=== PATIENT | female | born 1960 | race Caucasian/White ===

== ENCOUNTER 2017-02-26 20:16 | Emergency (ER) | payer MEDICAID ==
[~2017-02-26] VITALS: Ht 154.9 cm; Wt 58.0 kg
[~2017-02-26 20:16] MED LIST: ALBU18HF INHALATION; LEVA15HF6; LORA10TA3 PO; PRED20TA PO
[2017-02-26 21:21] VITALS: Ht 154.9 cm; Wt 58.0 kg
[2017-02-27] MEDS ORDERED: LIDOCAINE 1% (MDV) 20 ML INJ SC ONE (01:00)
[2017-02-27] MEDS ORDERED: SULF1TAB31 PO (01:51)
[2017-02-27] MEDS ORDERED: ACET500C5 PO (01:51)
[2017-02-27] MEDS ORDERED: ACETAMINOPHEN 500 MG TAB PO STA (01:52)
--- NOTE | 2017-02-27 02:06 | ERD ---
ER Documentation Chief Complaint Date/Time DATE: 02/27/17 TIME: 02:00 Chief Complaint left thumb pain with swelling, started 8 days ago HPI 56-year-old female is complaining of pain in her left thumb times 8 days. 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 Denies any injury to her left thumb. Denies fever or chills. Denies purulent drainage. ROS All systems reviewed and are negative except as per history of present illness. Medications Home Meds Active Scripts Sulfamethoxazole/Trimethoprim* (Bactrim Ds* Tablet) 1 Each Tablet, 1 TAB PO BID , #14 TAB Prov:BISHOP COX NP 02/27/17 Acetaminophen* (Tylophen*) 500 Mg Capsule, 1 CAP PO Q6H Y for PAIN AND OR ELEVATED TEMP, #20 CAP Prov:BISHOP COX NP 02/27/17 Loratadine* (Loratadine*) 10 Mg Tablet, 10 MG PO DAILY, #30 TAB 0 Refills Prov:TANA LEIVA PA-C 08/09/15 Prednisone* (Prednisone*) 20 Mg Tab, 40 MG PO DAILY, #10 TAB 0 Refills Prov:TANA LEIVA PA-C 08/09/15 Albuterol Sulfate* (Ventolin HFA*) 18 Gm Hfa.aer.ad, 2 PUFF INHALATION Q6H, #1 INHALER 0 Refills Prov:TANA LEIVA PA-C 08/09/15 Reported Medications Levalbuterol* (Xopenex* HFA) 15 Gm Inha 07/26/10 Allergies Allergies: Coded Allergies: Aspirin (Verified Allergy, Mild, 07/26/10) Penicillins (Verified Allergy, Mild, 07/26/10) PMhx/Soc History of Surgery: Yes (ARM SURGERY) Anesthesia Reaction: No Hx Neurological Disorder: No Hx Respiratory Disorders: Yes (ASTHMA) Hx Cardiac Disorders: No Hx Psychiatric Problems: No Hx Miscellaneous Medical Probl: No Hx Alcohol Use: No Hx Substance Use: No Hx Tobacco Use: No Smoking Status: Never smoker Physical Exam Vitals Vital Signs Date Time Temp Pulse Resp B/P Pulse Ox O2 Delivery O2 Flow Rate FiO2 02/26/17 21:21 97.8 74 18 139/74 100 Physical Exam General: Well-developed, well-nourished, conscious and coherent, in no distress Skin: Warm and dry without rash, good texture and turgor Head: Normocephalic without evidence of trauma Eyes: Sclera and conjunctivae normal; pupils equal, round, and reactive to light; extraocular movements are intact Chest: Normal AP diameter. Good expansion without retractions. Nontender. Lungs are clear to auscultate bilaterally with good tidal volume Heart: Regular rate and rhythm. No murmur, rub, or gallops heard Extremities: Left thumb swollen surrounding the nail on the ulnar aspect, slightly red and tender. Full range of motion. Good strength bilaterally. No clubbing, cyanosis, or edema. Peripheral pulses are intact. Sensation intact Neuro: Alert and oriented 4, GCS 15. Cranial nerves grossly intact. Motor and sensory exams nonfocal. Moves all extremities. Speech clear. Gait normal Results 24 hrs Current Medications Medications (Trade) Dose Ordered Sig/Sera Route PRN Reason Start Time Stop Time Status Last Admin Dose Admin Lidocaine (Xylocaine 1% (Mdv) 20 ml) 20 ml ONCE ONCE SC 02/27/17 01:00 02/27/17 01:01 DC Acetaminophen (Tylenol Tab) 500 mg ONCE STAT PO 02/27/17 01:52 02/27/17 01:54 DC Procedures/MDM Procedure note: Incision and Drainage Verbal consent obtained for incision and drainage of patient's paronychia. The area was prepped with Betadine. Digital block was 1% lidocaine was performed. After appropriate anesthesia, incision was made using #11 blade. Very small amount of purulent discharge was drained from the paronychia. The wound was then cleaned and dressed. Patient tolerated procedure well. Well-appearing 56-year-old female presented ED with paronychia of her left thumb. Patient advised to soak her affected digit in hot water 3-4 times a day , and wear gloves when she is at work. I doubt necrotizing fasciitis, deep tissue cellulitis. Patient appears well, stable for discharge and outpatient management. Medical decision making shared with patient and family. Education provided to patient and family. Patient and family expressed understanding of the plan. Medications on discharge: Tylenol, Bactrim DS. Follow-up: Return to eating 2 days for wound check. Disclaimer: Inadvertent spelling and grammatical errors are likely due to EHR/ dictation software use and do not reflect on the overall quality of patient care. Also, please note that the electronic time recorded on this note does not necessarily reflect the actual time of the patient encounter. Departure Diagnosis: Primary Impression: Paronychia Condition: Stable Patient Instructions: Paronychia [facility] Usted se jordan hecho un examen mdico de control que le indica que no est en alonso condicin que requiera tratamiento urgente en el Departamento de Emergencia. Un estudio ms profundo y el tratamiento de jones condicin pueden esperar sin ningn riesgo hasta que usted sea atendida/o en el consultorio de jones mdico o alonso cl bladimir. Es responsabilidad suya arreglar alonso awilda para el seguimiento del khadijah. MANEJO DE CONDICIONES NO URGENTES EN EL FUTURO 1) Si usted tiene un mdico de atencin primaria: Usted debera llamar a jones mdico de atencin primaria antes de venir al departamento de emergencia. Despus de las horas de consultorio, jones doctor o jones asociado/a est disponible por telfono. El mdico o enfermero de piper en el servicio telefnico puede asesorarle por nellie medio para atender el problema, o khadijah contrario se puede programar alonso awilda. 2) Si usted no tiene un mdico de atencin primaria: Llame al mdico o clnica de referencia que aparece abajo philly las horas de consultorio para hacer alonso awilda para que le vean. CLINICAS: [facility] [phone] [facility] [phone] [facility] [phone] [facility] [facility] [phone] [facility] [facility] [phone] [facility]. [phone] Additional Instructions: Regrese a estas instalaciones dentro de [facility] para un examen de seguimiento.Regrese antes si jones condicin se empeora. BISHOP COX NP Feb 27, 2017 02:06
== END 2017-02-27 02:15 | disposition home or self-care (01) ==
LOC: FTE 20:16
DX: L03.012 Cellulitis of left finger (principal); J45.909 Unspecified asthma, uncomplicated
CPT/HCPCS: 26010; Z7502; Z7610

== ENCOUNTER 2017-03-01 15:08 | Emergency (ER) | payer MEDICAID ==
[~2017-03-01] VITALS: Ht 160 cm; Wt 58.5 kg
[~2017-03-01 15:08] MED LIST changes: +ACET500C5 PO; +SULF1TAB31 PO
[2017-03-01 15:18] VITALS: Ht 160 cm; Wt 58.5 kg
--- NOTE | 2017-03-01 17:15 | ERD ---
ER Documentation Chief Complaint Date/Time DATE: 03/01/17 TIME: 17:13 Chief Complaint Patient here for a wound check HPI 48-year-old female comes in status post incision and drainage of a paronychia of the left thumb, coming in for wound check. Incision and drainage was done in which patient was discharged with Bactrim which she has been taking daily. She states pain is improving, there is not been any fevers, chills or drainage. ROS All systems reviewed and are negative except as per history of present illness. Medications Home Meds Active Scripts Sulfamethoxazole/Trimethoprim* (Bactrim Ds* Tablet) 1 Each Tablet, 1 TAB PO BID , #14 TAB Prov:BISHOP COX CARDIAC REHABILITATION PROGRAM DIRECTOR 02/27/17 Acetaminophen* (Tylophen*) 500 Mg Capsule, 1 CAP PO Q6H Y for PAIN AND OR ELEVATED TEMP, #20 CAP Prov:BISHOP COX CARDIAC REHABILITATION PROGRAM DIRECTOR 02/27/17 Loratadine* (Loratadine*) 10 Mg Tablet, 10 MG PO DAILY, #30 TAB 0 Refills Prov:TANA LEIVA PA-C 08/09/15 Prednisone* (Prednisone*) 20 Mg Tab, 40 MG PO DAILY, #10 TAB 0 Refills Prov:TANA LEIVA PA-C 08/09/15 Albuterol Sulfate* (Ventolin HFA*) 18 Gm Hfa.aer.ad, 2 PUFF INHALATION Q6H, #1 INHALER 0 Refills Prov:TANA LEIVA PA-C 08/09/15 Reported Medications Levalbuterol* (Xopenex* HFA) 15 Gm Inha 07/26/10 Allergies Allergies: Coded Allergies: Aspirin (Verified Allergy, Mild, 07/26/10) Penicillins (Verified Allergy, Mild, 07/26/10) PMhx/Soc History of Surgery: Yes (ARM SURGERY) Anesthesia Reaction: No Hx Neurological Disorder: No Hx Respiratory Disorders: Yes (ASTHMA) Hx Cardiac Disorders: No Hx Psychiatric Problems: No Hx Miscellaneous Medical Probl: No Hx Alcohol Use: No Hx Substance Use: No Hx Tobacco Use: No Physical Exam Vitals Vital Signs Date Time Temp Pulse Resp B/P Pulse Ox O2 Delivery O2 Flow Rate FiO2 03/01/17 15:18 98.3 71 20 111/63 97 Physical Exam General: Well-developed, well-nourished. The patient appears in no acute distress. HEENT: Head is normocephalic, atraumatic. No scleral icterus. Neck: Supple. Nontender. Lungs: Clear to auscultation. Normal air movement. Heart: Regular rate and rhythm. S1 and S2 are normal. No murmurs, gallops, or rubs. Abdomen: Nondistended. Extremities: Left thumb, there is evidence of right knee incision and drainage was done at the medial aspect of the nail, no continuing paronychia. She is able to flex and extend the thumb fully. neurologic: Alert and oriented 3. No focal deficits. Normal speech and gait. Skin: Normal turgor. No rash or lesions. Procedures/MDM 48-year-old female comes in status post incision and drainage of paronychia of the left thumb, no complications, improving. Wound shows no evidence of foreign body, neurologic injury, vascular injury, open joint or tendon laceration. Patient appropriate for outpatient follow up. Departure Diagnosis: Primary Impression: Encounter for wound re-check Additional Impression: Paronychia Condition: Good Patient Instructions: Wound Care KATHERINE ESPARZA PA-C Mar 01, 2017 17:15
== END 2017-03-01 17:15 | disposition home or self-care (01) ==
LOC: FTE 15:08
DX: Z48.01 Encounter for change or removal of surgical wound dressing (principal); L03.012 Cellulitis of left finger; J45.909 Unspecified asthma, uncomplicated
CPT/HCPCS: 99281